=== PATIENT | male | born 1995 | race Hispanic/Latino ===

== ENCOUNTER 2023-02-23 20:53 | Emergency (ER) | payer OTHER ==
[~2023-02-23] VITALS: Ht 165.1 cm; Wt 74.8 kg
[2023-02-23 22:26] LABS: APPEARANCE,URINE CLEAR (CLEAR); BILIRUBIN,URINE NEGATIVE (NEGATIVE); GLUCOSE, URINE (UA) NEGATIVE (NEGATIVE); KETONES,URINE NEGATIVE (NEGATIVE); LEUKOCYTE ESTERASE ,URINE NEGATIVE Leu/uL (NEGATIVE); NITRATE,URINE NEGATIVE (NEGATIVE); OCCULT BLOOD,URINE NEGATIVE (NEGATIVE); PH,URINE 5.5 (5.0-8.0); PROTEIN,URINE NEGATIVE (NEGATIVE); UROBILINOGEN,URINE 0.2 mg/dL (0.2-1.0)
[2023-02-23] MEDS ORDERED: KETOROLAC 60 MG VIAL (30MG/ML) IM ONE (22:30)
[2023-02-23 22:35] LABS: COLOR,URINE Light-Yellow (YELLOW)
[2023-02-23 22:46] LABS: BASOPHILS % (AUTO) 0.5 % (0.0-5.0); EOSINOPHILS % (AUTO) 0.6 % (0.0-8.0); HEMATOCRIT 46.1 % (42-54); LYMPHOCYTES % (AUTO) 20.6 % (21.0-51.0); MEAN CORPUSCULAR VOLUME 84.9 fL (79-99); MONOCYTES % (AUTO) 7.5 % (3.0-13.0); NEUTROPHILS % (AUTO) 70.3 % (40.0-77.0); PLATELET COUNT (AUTO) 326 K/uL (130-400); RED BLOOD CELL COUNT(AUTO) 5.43 MIL/uL (4.50-6.20); RED CELL DISTRIBUTION WIDTH 13.2 % (11.0-15.5); WHITE BLOOD COUNT (AUTO) 9.5 K/uL (4.8-10.8)
[2023-02-23 22:55] LABS: POTASSIUM 3.8 mmol/L (3.5-5.1)
[2023-02-23 23:00] LABS: ALBUMIN 4.6 g/dL (3.5-5.0); TOTAL PROTEIN, SERUM 8.5 g/dL (6.0-8.3)
[2023-02-24] MEDS ORDERED: IBUP-2070 PO (00:02)
[2023-02-24] MEDS ORDERED: CYCL5TAB PO (00:02)
[2023-02-24] MEDS ORDERED: LIDOP TP (00:02)
[2023-02-24 00:08] VITALS: BP 106/70
== END 2023-02-24 00:14 | disposition home or self-care (01) ==
LOC: EDH 20:53
DX: S39.012A Strain of muscle, fascia and tendon of lower back, initial encounter (principal); M94.0 Chondrocostal junction syndrome [Tietze]; Z90.49 Acquired absence of other specified parts of digestive tract; X58.XXXA Exposure to other specified factors, initial encounter; Y93.89 Activity, other specified; Y92.89 Other specified places as the place of occurrence of the external cause; Y99.8 Other external cause status
CPT/HCPCS: 99284; 80053; 85025; 81003; 36415; 71101; 96372; J1885